=== PATIENT | male | born 1950 | race Caucasian/White ===

== ENCOUNTER 2021-06-30 11:50 | Emergency (ER) | payer MEDICARE, OTHER | END 2021-06-30 14:55 | disposition home or self-care (01) | LOC: FB.ED 11:50 | DX: I10 Essential (primary) hypertension (principal); R31.29 Other microscopic hematuria; K21.9 Gastro-esophageal reflux disease without esophagitis; M10.9 Gout, unspecified; N40.0 Benign prostatic hyperplasia without lower urinary tract symptoms; Z79.899 Other long term (current) drug therapy | CPT/HCPCS: 36415; 70450; 74176; 80053; 81001; 83735; 84443; 85025; 86140; 93005; 93010; 99283; 99284-25 ==

== ENCOUNTER 2024-05-29 11:23 | Emergency (ER) | payer MEDICARE, OTHER ==
[2024-05-29] MEDS ORDERED: Lidocaine 2% with EPINEPHrine 1:100,000 20 ML MDV INFILT ONE (11:24)
== END 2024-05-29 12:10 | disposition home or self-care (01) ==
LOC: FB.ED 11:23
DX: S61.412A Laceration without foreign body of left hand, initial encounter (principal); I10 Essential (primary) hypertension; K21.9 Gastro-esophageal reflux disease without esophagitis; Z88.8 Allergy status to other drugs, medicaments and biological substances; Z79.899 Other long term (current) drug therapy; W31.1XXA Contact with metalworking machines, initial encounter
CPT/HCPCS: 12002; 99282